=== PATIENT | male | born 1940 | race Caucasian/White ===

== ENCOUNTER 2017-02-06 11:57 | Inpatient (IN) | payer MEDICARE ==
[~2017-02-06] VITALS: Ht 182.9 cm; Wt 56.7 kg
[2017-02-06] VITALS: BP 149/74
--- NOTE | 2017-02-06 11:59 | NUR ---
BBRA FROM NEWSPAPER STAND: DIZZINESS. DENIES FALL OR KO. 600CC BOLUS NS IN FIELD
[2017-02-06 12:22] LABS: BASOPHILS # (AUTO) 0.1 /CMM (0.0-0.2); BASOPHILS % (AUTO) 1.4 % (0.0-2.0); EOSINOPHILS # (AUTO) 0.1 /CMM (0.0-0.7); HEMATOCRIT 40 % (39-51); HEMOGLOBIN 13.3 g/dL (13.5-17.5); LYMPHOCYTES # (AUTO) 1.4 /CMM (0.8-4.8); LYMPHOCYTES % (AUTO) 14.7 % (20.0-44.0); MEAN CORPUSCULAR HEMOGLOBIN 31 PG (26.0-33.0); MEAN CORPUSCULAR HGB CONC 33 g/dl (31.0-36.0); MEAN CORPUSCULAR VOLUME 93 fL (80-96); MONOCYTES # (AUTO) 0.7 /CMM (0.1-1.30); MONOCYTES % (AUTO) 7.1 % (2.0-12.0); NEUTROPHILS # (AUTO) 7.1 /CMM (1.8-8.9); NEUTROPHILS % (AUTO) 75.8 % (43.0-81.0); PLATELET COUNT (AUTO) 204 /CMM (150-450); RDW COEFFICIENT OF VARIATION 12.2 (11.5-15.0); RED BLOOD CELL COUNT(AUTO) 4.28 MIL/uL (4.5-6.0); WHITE BLOOD COUNT (AUTO) 9.4 K/uL (4.3-11.0)
[2017-02-06] MEDS ORDERED: IV NS 0.9% 1,000 ML BAG IV ONE (12:30)
[2017-02-06 12:34] LABS: CALCIUM, SERUM 8.6 mg/dL (8.5-10.1); CARBON DIOXIDE 24 mmol/L (21-32); CHLORIDE 103 mmol/L (98-107); CREATININE 1.2 mg/dL (0.6-1.3); GLUCOSE 103 mg/dL (74-106); POTASSIUM 4.3 mmol/L (3.5-5.1); SODIUM SERUM 135 mmol/L (136-145); UREA NITROGEN, BLOOD 27 mg/dL (7-18)
[2017-02-06 12:38] LABS: INR 0.94 (0.87-1.13); PROTHROMBIN TIME 9.8 SECS (9.5-12.7)
[2017-02-06 12:40] LABS: ALANINE AMINOTRANSFERASE 10 U/L (12-78); ALBUMIN 3.2 g/dL (3.4-5.0); ALKALINE PHOSPHATASE 60 U/L (46-116); ASPARTATE AMINOTRANSFERASE 22 U/L (15-37); BILIRUBIN,DIRECT 0.1 mg/dL (0.0-0.2); BILIRUBIN,TOTAL 0.4 mg/dL (0.2-1.0); TOTAL PROTEIN, SERUM 6.4 g/dL (6.4-8.2)
[2017-02-06 12:42] LABS: TROPONIN I 0.261 ng/mL (0.00-0.056)
[2017-02-06] MEDS ORDERED: ASPIRIN 325 MG TABLET ONE (13:28)
[2017-02-06] MEDS ORDERED: ASPIRIN 325 MG TABLET PO ONE (13:30)
[2017-02-06] MEDS ORDERED: MORPHINE SULFATE INJ 2 MG/ML DISP.SYRIN IV PRN (14:30)
[2017-02-06] MEDS ORDERED: NITROGLYCERIN 0.4 MG/TAB BOTTLE SL PRN (14:30)
[2017-02-06] MEDS ORDERED: MAG HYDROX/AL HYDROX/SIMETH 30 ML UDC PO PRN (14:30)
[2017-02-06] MEDS ORDERED: ACETAMINOPHEN 325 MG TABLET PO PRN (14:30)
[2017-02-06] MEDS ORDERED: ONDANSETRON HCL/PF 4 MG/2 ML VIAL IVP PRN (14:30)
[2017-02-06] MEDS ORDERED: ENOXAPARIN SODIUM 60 MG/0.6 ML DISP.SYRIN SQ ONE ×2 (14:30→15:56)
[2017-02-06] MEDS ORDERED: Z GUARD REMEDY 2 OZ OINT TP PRN (14:30)
[2017-02-06] MEDS ORDERED: MAGNESIUM HYDROXIDE 30 ML UDC PO PRN (14:30)
[2017-02-06] MEDS ORDERED: HYDROCODONE/APAP 5/325MG 1 EACH TABLET PO PRN (14:30)
--- NOTE | 2017-02-06 14:57 | NUR ---
GAVE REPORT TO LIZZIE RN BINU DX NEAR SYNCOPE NONSTEMI ADMITTING DR JOE. TRANSFER VIA ACLS PROTOCOL
[2017-02-06 16:00] VITALS: BP 116/73
[2017-02-06] MEDS: IV NS 0.9% 1,000 ML IV PRN (17:25)
--- NOTE | 2017-02-06 18:54 | NUR ---
RN CLOSING NOTE CARRIED OUT ALL MD ORDERS, PATIENTS NEEDS ANTICIPATED. PATIENT KEPT CLEAN AND DRY. NO SIGNIFICANT EVENTS DURING MY SHIFT. WILL GIVE REPORT TO PM RN FOR TYSON.
--- NOTE | 2017-02-06 19:00 | NUR ---
RN NOTES RECEIVED PT AWAKE ON BED NO ACUTE RESP DISTRESS. AFEBRILE. AOX3 ABLE TO MAKE KNOWN NEEDS. DIOMEDE NOTED BUT ABLE TO HEAR BETTER ON RIGHT EAR. PT IS WATCHING TV. DENIES ANY PAIN OR DIZZINESS. DENIES CHEST PAIN. SR WITH INVERTED T-WAVE HR 65 ON TELE MONITOR. IV SITE ON LEFT FOREARM G 16 RUNNING WITH NS @ 75 CC/HR INTACT AND PATENT. KEPT PT CLEAN AND DRY. ENCOURAGED TO ELEVATE LEGS AND MOTIVATED TO TURNED WHILE ON BED. FOR SKIN MANAGEMENT. INSTRUCTED TO USED CALL LIGHT, CALL LIGHT PLACED WITHIN EASY REACH. BED LOCKED AND SECURED PLACED IN LOWEST POSSIBLE POSITION. WILL CONTINUE TO MONITOR
[2017-02-06 20:00] VITALS: BP 123/68
[2017-02-06] MEDS: SIMVASTATIN 20 MG TABLET PO SCH (21:37)
[2017-02-07] VITALS: BP 149/74
[2017-02-07 04:00] VITALS: BP 153/68
--- NOTE | 2017-02-07 06:02 | NUR ---
RN NOTES PATIENT ASLEEP WELL ON BED. BREATHING EVEN AND UNLABORED.NO C/O OF DIZZINESS, NO SIGNIFICANT CHANGES NOTED THROUGHOUT THE SHIFT. TELE MONITOR REMAINED SINUS RHYTHM HR 63. AFEBRILE. VS STABLE. KEPT PT CLEAN AND DRY. DUE MEDICINE TOLERATED WELL. IVF NS @ 75 CC/HR INTACT AND PATENT. ASSISTED TO THE BATHROOM. WILL ENDORSED CONTINUITY OF CARE TO AM NURSE.
[2017-02-07] MEDS: IV NS 0.9% 1,000 ML IV PRN (06:15)
[2017-02-07 06:28] LABS: BASOPHILS # (AUTO) 0.1 /CMM (0.0-0.2); EOSINOPHILS # (AUTO) 0.3 /CMM (0.0-0.7); EOSINOPHILS % (AUTO) 3.6 % (0.0-6.0); HEMATOCRIT 39 % (39-51); HEMOGLOBIN 12.6 g/dL (13.5-17.5); LYMPHOCYTES % (AUTO) 23.3 % (20.0-44.0); MEAN CORPUSCULAR HEMOGLOBIN 31 PG (26.0-33.0); MEAN CORPUSCULAR HGB CONC 33 g/dl (31.0-36.0); MEAN CORPUSCULAR VOLUME 95 fL (80-96); MONOCYTES # (AUTO) 0.7 /CMM (0.1-1.30); MONOCYTES % (AUTO) 8.4 % (2.0-12.0); NEUTROPHILS # (AUTO) 5.4 /CMM (1.8-8.9); NEUTROPHILS % (AUTO) 63.7 % (43.0-81.0); PLATELET COUNT (AUTO) 163 /CMM (150-450); RDW COEFFICIENT OF VARIATION 12.9 (11.5-15.0); RED BLOOD CELL COUNT(AUTO) 4.06 MIL/uL (4.5-6.0); WHITE BLOOD COUNT (AUTO) 8.5 K/uL (4.3-11.0)
[2017-02-07 06:50] LABS: B-TYPE NATRIURETIC PEPTIDE 2969 PG/ML (0-125); CALCIUM, SERUM 8.7 mg/dL (8.5-10.1); CARBON DIOXIDE 24 mmol/L (21-32); CHLORIDE 104 mmol/L (98-107); CREATININE 0.9 mg/dL (0.6-1.3); GLUCOSE 85 mg/dL (74-106); MAGNESIUM 1.8 mg/dL (1.8-2.4); PHOSPHORUS 2.7 mg/dL (2.5-4.9); POTASSIUM 4.4 mmol/L (3.5-5.1); SODIUM SERUM 134 mmol/L (136-145); UREA NITROGEN, BLOOD 20 mg/dL (7-18)
[2017-02-07 06:51] LABS: CHOLESTEROL 210 mg/dL (<200); HDL CHOLESTEROL 54 mg/dL (40-60); LDL 130 mg/dL (0-99); THYROID STIMULATING HORMONE 4.978 uIU/mL (0.358-3.74); TRIGLYCERIDES 71 mg/dL (30-150)
[2017-02-07 08:00] VITALS: BP 135/71
--- NOTE | 2017-02-07 08:00 | NUR ---
TD/RN AM SHIFT INITIAL NOTES RECEIVED PT AWAKE SITTING IN BED, PT A/O X 3, HARD OF HEARING, DENIES CHEST PAIN, NO ACUTE CHANGE OF CONDITION NOTED. ON ROOM AIR, SATURATING @ 96%, LUNG SOUNDS CLEAR. ON TELE WITH SINUS RHYTHM, HR 65. WITH ON GOING IV INFUSION OF NS @ 75CC/HR, IV SITE PATENT WITH NO S/S INFECTION. PT IS COMFORTABLE. SCHEDULED AM MEDS TO BE GIVEN. CL WITHIN REACHED AND SAFETY MAINTAINED. ON GOING MONITORING.
[2017-02-07] MEDS: ASPIRIN EC 81 MG TABLET.DR PO SCH (08:49)
--- NOTE | 2017-02-07 11:17 | NUR ---
TELE1/RN ROUNDS - DR. SLAUGHTER PT SEEN & EXAMINED BY DR. SLAUGHTER. NO NEW ORDERS RECEIVED AT THIS TIME. MONITORING CONTINUED.
[2017-02-07 12:00] VITALS: BP 100/54
--- NOTE | 2017-02-07 14:04 | NUR ---
TELE1/PRODUCTION PLANNING SUPERVISOR OF CARE PT ENDORSED TO NURSE SAMUEL TO CONTINUE CARE.
--- NOTE | 2017-02-07 14:10 | NUR ---
RN NOTES; REC'D REPORT FROM PAO FOR TYSON.
[2017-02-07 16:00] VITALS: BP 105/55
--- NOTE | 2017-02-07 18:40 | NUR ---
RN CLOSING NOTES: NO ACUTE CHANGES NOTED W/IN SHIFT. PT TOLERATED ROOM AIR, NO SOB. ON TELE STILL WITH SINUS RHYTHM. L HAND G20 WITH ON GOING IV INFUSION OF NS @ 75CC/HR, IV SITE KEPT PATENT AND INTACT WITH NO S/S INFECTION OR INFILTRATION. KEPT WELL RESTED. NEEDS ATTENDED. CALL LIGHT PLACED WITHIN REACHED. BED KEPT LOW & IN LOCKED POS. WILL ENDORSE TO PM RN FOR TYSON.
--- NOTE | 2017-02-07 19:45 | NUR ---
RN INITIAL NOTE RECEIVED PT IN NO ACUTE DISTRESS IN BED. PT IS A/O X 3 AND ABLE TO MAKE NEEDS KNOWN. PT IS ON RA AND TOLERATING WELL WITH O2 SAT @ 98%. PT IS ON TELE MONITORING WITH SR ON THE MONITOR. PT NOT C/O ANY SOB, DIFFICULTY BREATHING OR PAIN AT THIS TIME. PT HAS LFA 18G THAT IS CLEAN DRY INTACT AND PATENT WITH SALINE LOCK. BED IN LOW LOCK POSITION WITH RIALS UP X 2. CALL LIGHT WITHIN REACH AND ALL SAFETY MEASURES ENSURED AND CARRIED OUT. WILL CONTINUE TO MONITOR PT.
[2017-02-07 20:00] VITALS: BP 120/63
[2017-02-07] MEDS: SIMVASTATIN 20 MG TABLET PO SCH (22:58)
[2017-02-07] MEDS: ZOLPIDEM TARTRATE 5 MG TABLET PO PRN (23:01)
[2017-02-08] VITALS: BP 139/75
[2017-02-08] MEDS ORDERED: ENOXAPARIN SODIUM 40 MG/0.4 ML DISP.SYRIN SQ SCH
[2017-02-08] MEDS ORDERED: ENOXAPARIN SODIUM 60 MG/0.6 ML DISP.SYRIN SQ SCH
--- NOTE | 2017-02-08 00:11 | NUR ---
RN NOTE GAVE LOVENOX 60MG @ 0000. WILL PUT NEW ORDER LOVENOX 40MG NOT GIVEN. CHARGE NURSE NOTIFIED.
[2017-02-08 04:00] VITALS: BP 113/54
--- NOTE | 2017-02-08 06:53 | NUR ---
RN CLOSING NOTE PT REMAINS IN NO ACUTE DISTRESS IN BED. PT DID NOT HAVE ANY SIGNIFICANT CHANGE IN CONDITION DURING SHIFT. ALL NEEDS MET, ALL ORDERS CARRIED OUT. WILL ENDORSE CARE TO AM RN FOR CONTINUITY OF CARE.
--- NOTE | 2017-02-08 07:00 | NUR ---
RN NOTE RECEIVED PT ON BED, A/O X 3, PT IS [place] , ABLE TO HEAR FROM L EAR, AND ABLE TO MAKE NEEDS KNOWN. RESPIRATION EVEN AND UNLABORED, NO SOB NOTED, ON TELE SR , HR IN 60'S , L FA IV SITE CDI, BED LOCKED AND IN LOWEST POSITION , CALL LIGHT WITHIN EASY REACH AND ALL SAFETY MEASURES ENSURED . WILL CONTINUE TO MONITOR PT CLOSELY
[2017-02-08 07:44] LABS: BASOPHILS % (AUTO) 0.3 % (0.0-2.0); EOSINOPHILS # (AUTO) 0.3 /CMM (0.0-0.7); EOSINOPHILS % (AUTO) 3.5 % (0.0-6.0); HEMATOCRIT 40 % (39-51); HEMOGLOBIN 13.2 g/dL (13.5-17.5); LYMPHOCYTES # (AUTO) 1.9 /CMM (0.8-4.8); LYMPHOCYTES % (AUTO) 19.9 % (20.0-44.0); MEAN CORPUSCULAR HEMOGLOBIN 32 PG (26.0-33.0); MEAN CORPUSCULAR HGB CONC 33 g/dl (31.0-36.0); MEAN CORPUSCULAR VOLUME 95 fL (80-96); MONOCYTES # (AUTO) 0.8 /CMM (0.1-1.30); MONOCYTES % (AUTO) 8.2 % (2.0-12.0); NEUTROPHILS # (AUTO) 6.5 /CMM (1.8-8.9); NEUTROPHILS % (AUTO) 68.1 % (43.0-81.0); PLATELET COUNT (AUTO) 164 /CMM (150-450); RDW COEFFICIENT OF VARIATION 13.1 (11.5-15.0); RED BLOOD CELL COUNT(AUTO) 4.19 MIL/uL (4.5-6.0); WHITE BLOOD COUNT (AUTO) 9.6 K/uL (4.3-11.0)
[2017-02-08 08:00] VITALS: BP 117/55
[2017-02-08] MEDS: ASPIRIN EC 81 MG TABLET.DR PO SCH (08:10)
[2017-02-08 08:16] LABS: CARBON DIOXIDE 24 mmol/L (21-32); CHLORIDE 105 mmol/L (98-107); CREATININE 0.9 mg/dL (0.6-1.3); GLUCOSE 81 mg/dL (74-106); MAGNESIUM 1.8 mg/dL (1.8-2.4); PHOSPHORUS 3.1 mg/dL (2.5-4.9); POTASSIUM 4.1 mmol/L (3.5-5.1); SODIUM SERUM 138 mmol/L (136-145); UREA NITROGEN, BLOOD 15 mg/dL (7-18)
[2017-02-08 12:00] VITALS: BP 116/60
--- NOTE | 2017-02-08 12:00 | NUR ---
RN NOTES PT STABLE TAL ANY DISTRESS , CONTINUE TO MONITOR .
[2017-02-08 16:00] VITALS: BP 117/69
--- NOTE | 2017-02-08 18:17 | NUR ---
RN NOTES RESPIRATION EVEN AND UNLABORED, PT WATCHING TV , TAL ANY CHEST PAIN. LEFT HAND IV SITE CDI, SR UP x3, CALL LIGHT WITHIN EASY REACH, NO SIGNIFICANT CHANGES NOTED ON THIS SHIFT , WILL ENDORSE TO BERENICE SHIFT NURSE FOR TYSON
--- NOTE | 2017-02-08 19:30 | NUR ---
RN/TELE NOTES: RECEIVED PT IN BED A/O X 3 VERBALLY RESPONSIVE. NOT IN ANY RESPIRATORY DISTRESS. RA SAT. 96 %. ABLE TO MAKE NEEDS KNOWN. PT IS ON TELE MONITORING WITH SR @ 67. PT HAS LFA HL PATENT AND INTACT W/NO S/S OF INFECTION/INFILTRATION NOTED. BED IN LOW LOCK POSITION WITH RAILS UP X 2. CALL LIGHT WITHIN REACH AND ALL SAFETY MEASURES ENSURED AND CARRIED OUT. WILL CONTINUE TO MONITOR . CALL LIGHT W/ REACH.
[2017-02-08 20:00] VITALS: BP 105/59
[2017-02-08] MEDS: ENOXAPARIN SODIUM 40 MG/0.4 ML DISP.SYRIN SQ SCH (21:04)
[2017-02-08] MEDS: SIMVASTATIN 20 MG TABLET PO SCH (21:04)
[2017-02-08] MEDS: ZOLPIDEM TARTRATE 5 MG TABLET PO PRN (21:06)
[2017-02-09] VITALS: BP_SYST 105; BP_SYST 108; BP_DIAS 55; BP_DIAS 59
[2017-02-09 04:00] VITALS: BP 101/52
--- NOTE | 2017-02-09 07:05 | NUR ---
RN/TELE NOTES: PT. RESTING IN BED COMFORTABLE. NOT IN ANY DISTRESS. REPORT GIVEN TO NEXT SHIFT NURSE TO CONTINUE PLAN OF CARE.
--- NOTE | 2017-02-09 07:15 | NUR ---
RN INITIAL NOTES: RECEIVED PT ON BED, PT IS NOT IN ANY DISTRESS AT THIS TIME. PT A&OX3, HARD OF HEARING ON LEFT SIDE, DENIES ANY CHEST PAIN. ON TELEMONITOR, SR. HAS L HAND G20, SL, FLUSHING WELL, NO S/SX OF INFECTION/INFILTRATION NOTED. PROVIDED COMFORT & SAFETY MEASURES. CALL LIGHT PLACED W/IN REACH. BED KEPT LOW & IN LOCKED POS. RN WILL CONTINUE TO MONITOR PT AND ADDRESS NEEDS.
[2017-02-09 08:00] VITALS: BP_SYST 110; BP_SYST 117; BP_DIAS 55; BP_DIAS 64
[2017-02-09] MEDS: ASPIRIN EC 81 MG TABLET.DR PO SCH (08:24)
[2017-02-09 12:00] VITALS: BP 104/54
--- NOTE | 2017-02-09 14:31 | NUR ---
02/09/[address] RAGLAND(CARDIO) PT IS SCHEDULE FOR HEART CATH AT [facility] AT 1630 ON 02/11/17, CONFRIMED WITH JAIME MORALES AT [facility]. ARANGED TRANSPORTATION VIA [facility] PROFESS[facility] AT 1345 TRIP#:[id number]. Addendum: 02/09/17 at 1432 by MARI DONATO [facility] Amended: Links added.
[2017-02-09 16:00] VITALS: BP 113/54
--- NOTE | 2017-02-09 18:43 | NUR ---
RN CLOSING NOTES: NO CHANGES NOTED W/IN SHIFT. PT TOLERATED ROOM AIR, NO SOB. ON TELE STILL WITH SINUS RHYTHM. L HAND G20, IV SITE KEPT PATENT AND INTACT WITH NO S/S INFECTION OR INFILTRATION. KEPT WELL RESTED. NEEDS ATTENDED. CALL LIGHT PLACED WITHIN REACHED. BED KEPT LOW & IN LOCKED POS.
--- NOTE | 2017-02-09 19:30 | NUR ---
RN/TELE NOTES: RECEIVED PT IN BED A/O X 3 VERBALLY RESPONSIVE. NOT IN ANY RESPIRATORY DISTRESS. RA SAT. 97 %. PT. IS [place]. PREFERS TO TALK TO HIS RIGHT SIDE. ABLE TO MAKE NEEDS KNOWN. PT IS ON TELE MONITORING WITH SR w/BBB @ 67. PT HAS LFA HL PATENT AND INTACT W/NO S/S OF INFECTION/INFILTRATION NOTED. BED IN LOW LOCK POSITION WITH RAILS UP X 2. CALL LIGHT WITHIN REACH AND ALL SAFETY MEASURES ENSURED AND CARRIED OUT. WILL CONTINUE TO MONITOR .
[2017-02-09 20:00] VITALS: BP 120/73
[2017-02-09] MEDS: ZOLPIDEM TARTRATE 5 MG TABLET PO PRN (21:03)
[2017-02-09] MEDS: ENOXAPARIN SODIUM 40 MG/0.4 ML DISP.SYRIN SQ SCH (21:04)
[2017-02-09] MEDS: SIMVASTATIN 20 MG TABLET PO SCH (21:04)
[2017-02-10] VITALS (7 sets, daily range): BP systolic 92–127; BP diastolic 38–69
--- NOTE | 2017-02-10 07:10 | NUR ---
RN/TELE NOTES: PT. RESTING IN BED COMFORTABLE. NOT IN ANY DISTRESS. REPORT GIVEN TO NEXT SHIFT NURSE TO CONTINUE PLAN OF CARE.
--- NOTE | 2017-02-10 07:38 | NUR ---
RN/TELE NOTES: RECEIVED PT RESTING IN BED A/O X 3, [place]. PATIENT IN NO APPARENT DISTRESS. NO SOB ON ROOM AIR, SAT ABOVE 95%. PATIENT ABLE TO COMMUNICATE AND MAKE NEEDS KNOWN. DENIES PAIN OR DISCOMFORT AT THIS TIME. ON TELE MONITORING WITH SR w/BBB IN 60S. IV TO LEFT HAND 20G PATENT AND INTACT. SAFETY MEASURES RENDERED BED IN LOW LOCK POSITION WITH RAILS UP X 2. CALL LIGHT WITHIN REACH. WILL CONTINUE TO MONITOR .
[2017-02-10] MEDS: ASPIRIN EC 81 MG TABLET.DR PO SCH (09:31)
--- NOTE | 2017-02-10 14:09 | NUR ---
TELE/RN NOTES PER MD ORDER, TO ASSIST PATIENT WITH AMBULATION. PATIENT STEADY DURING AMBULATION WITH NO GAIT PROBLEMS NOTED. WILL CONTINUE TO MONITOR
--- NOTE | 2017-02-10 18:24 | NUR ---
TELE NOTES PATIENT RESTING IN BED COMFORTABLY, STABLE WITH NO SIGNIFICANT CHANGES. PATIENT DENIES CHEST PAIN OR DISCOMFORT THROUGHOUT THE SHIFT. PATIENT KEPT CLEAN AND DRY. SAFETY MEASURES RENDERED. ALL DUE MEDICATIONS GIVEN ALL NEEDS MET AND ATTENDED. PATIENT HARD OF HEARING HOWEVER ABLE TO COMMUNICATE MAKE NEEDS KNOWN. PLAN OF CARE DISCUSSED AND AGREED. WILL ENDORSE CARE TO NIGHT SIFT .
--- NOTE | 2017-02-10 19:50 | NUR ---
LATH HAND NOTE: PATIENT RESTING IN BED, NO ACUTE DISTRESS NOTED. BREATHING EVEN AND UNLABORED, NO SOB NOTED. IV TO LEFT HAND IN PLACE. TELE READING 67 WITH INVERTED T-WAVE. INFORMED PATIENT THAT HE WILL BE NPO AFTER MIDNIGHT FOR PROCEDURE TOMORROW AT [facility]. BED LOCKED AND IN LOWEST POSITION, CALL LIGHT IN REACH, WILL CONTINUE TO MONITOR.
[2017-02-10] MEDS: ENOXAPARIN SODIUM 40 MG/0.4 ML DISP.SYRIN SQ SCH (21:00)
[2017-02-10] MEDS: ZOLPIDEM TARTRATE 5 MG TABLET PO PRN (21:26)
[2017-02-10] MEDS: SIMVASTATIN 20 MG TABLET PO SCH (21:26)
--- NOTE | 2017-02-10 21:30 | NUR ---
MEAT CUTTING BLOCK REPAIRER NOTE: PATIENT REQUEST FOR SLEEPING MEDICATION, AMBIEN 5MG ORAL GIVEN PER MD ORDER. WILL CONTINUE TO MONITOR.
[2017-02-11] VITALS (8 sets, daily range): BP systolic 101–124; BP diastolic 30–64
[2017-02-11 06:24] LABS: BASOPHILS % (AUTO) 0.4 % (0.0-2.0); EOSINOPHILS # (AUTO) 0.4 /CMM (0.0-0.7); EOSINOPHILS % (AUTO) 3.9 % (0.0-6.0); HEMATOCRIT 44 % (39-51); HEMOGLOBIN 14.3 g/dL (13.5-17.5); LYMPHOCYTES % (AUTO) 21.8 % (20.0-44.0); MEAN CORPUSCULAR HEMOGLOBIN 30 PG (26.0-33.0); MEAN CORPUSCULAR HGB CONC 32 g/dl (31.0-36.0); MEAN CORPUSCULAR VOLUME 94 fL (80-96); MONOCYTES # (AUTO) 0.9 /CMM (0.1-1.30); MONOCYTES % (AUTO) 9.3 % (2.0-12.0); NEUTROPHILS % (AUTO) 64.6 % (43.0-81.0); PLATELET COUNT (AUTO) 167 /CMM (150-450); WHITE BLOOD COUNT (AUTO) 9.3 K/uL (4.3-11.0)
--- NOTE | 2017-02-11 06:30 | NUR ---
SCRAP KETTLE TENDER NOTE: PATIENT RESTING IN BED, NO ACUTE DISTRESS NOTED. BREATHING EVEN AND UNLABORED, NO SOB NOTED. IV TO LEFT HAND IN PLACE. TELE READING 60 WITH INVERTED T-WAVE. PATIENT NPO SINCE MIDNIGHT FOR PROCEDURE AT [facility]. BED LOCKED AND IN LOWEST POSITION, CALL LIGHT IN REACH, WILL ENDORSE TO DAY NURSE TO CONTINUE WITH PLAN OF CARE.
[2017-02-11 06:40] LABS: INR 0.9 (0.87-1.13); PROTHROMBIN TIME 9.4 SECS (9.5-12.7)
[2017-02-11 06:52] LABS: CALCIUM, SERUM 9.4 mg/dL (8.5-10.1); CARBON DIOXIDE 28 mmol/L (21-32); CHLORIDE 100 mmol/L (98-107); CREATININE 1.1 mg/dL (0.6-1.3); GLUCOSE 92 mg/dL (74-106); MAGNESIUM 1.9 mg/dL (1.8-2.4); PHOSPHORUS 3.9 mg/dL (2.5-4.9); POTASSIUM 4.5 mmol/L (3.5-5.1); SODIUM SERUM 135 mmol/L (136-145); UREA NITROGEN, BLOOD 24 mg/dL (7-18)
--- NOTE | 2017-02-11 07:10 | NUR ---
RN NOTES PT IS SLEEPING IN BED, NO SIGNS OF DISTRESS NOTED. PT ON RA, RESPIRATIONS ARE EVEN AND UNLABORED. IV ON L HAND INTACT AND SL. SAFETY MEASURES ARE IN PLACE, CALL LIGHT IS IN REACH. WILL CONTINUE TO MONITOR.
[2017-02-11] MEDS: ASPIRIN EC 81 MG TABLET.DR PO SCH (08:47)
--- NOTE | 2017-02-11 12:30 | NUR ---
RN NOTES PT WAS TRANSFERRED TO [facility] FOR CARDIAC CATHETERIZATION PROCEDURE. PT LEFT IN STABLE CONDITION ACCOMPANIED BY AMBULANCE PRACTICE BUSINESS ASST. REPORT GIVEN TO RECEIVING NURSE.
--- NOTE | 2017-02-11 18:27 | NUR ---
RN NOTES PT AT [facility] IN RECOVERY POST HEART CATH. UPDATES FROM THE RN JAIME STATES PT IS STABLE, ON RA, VITAL SIGNS ARE STABLE. PT HAS EATEN HIS DINNER BUT HAS NOT VOIDED YET. DRESSING ON R GROIN IN PLACE. PT IS SCHEDULED TO BE PICKED UP FROM [facility] AND TRANSFERRED BACK HERE AT 1900. WILL ENDORSE TO TURBINE TECHNICIAN RN.
--- NOTE | 2017-02-11 21:00 | NUR ---
RN NOTES PATIENT RETURNED TO UNIT VIA GURNEY, ACCOMPANIED BY TRANSPORT NURSE AND 2EMTs. PATIENT IS A/O X4, ABLE TO VERBALIZE NEEDS, DENIES ANY ACUTE DISTRESS OR PAIN AT THIS TIME. BREATHING EVEN AND NONLABORED, TOLERATING ROOM AIR WELL, FREE FROM ANY S/S OF RESPIRATORY DISTRESS. PLACED ON TELEMETRY MONITORING, REVEALING NSR, HR = 66. PATIENT DENIES ANY PAIN OR CHEST DISCOMFORT. RIGHT GROIN DRESSING INTACT, NOTED WITH SCANT AMOUNT OF DRY BLOOD. PATIENT IS AMBULATORY, STEADY WITHOUT ANY ASSISTANCE. PATIENT URINATED IN BATHROOM. PLAN OF CARE DISCUSSED WITH THE PATIENT CALL LIGHT LEFT WITHIN EASY REACH. WILL CONTINUE TO CLOSELY MONITOR THE PATIENT
[2017-02-11] MEDS: SIMVASTATIN 20 MG TABLET PO SCH (21:11)
[2017-02-11] MEDS: ENOXAPARIN SODIUM 40 MG/0.4 ML DISP.SYRIN SQ SCH (21:15)
[2017-02-12] VITALS: BP 131/67
[2017-02-12 04:00] VITALS: BP_SYST 106; BP_SYST 141; BP_DIAS 65; BP_DIAS 77
--- NOTE | 2017-02-12 06:28 | NUR ---
RN CLOSING NOTES PATIENT RESTING COMFORTABLY IN BED, NO ACUTE CHANGES THROUGHOUT SHIFT, PATIENT KEPT COMFORTABLE. WILL ENDORSE THE PATIENT TO THE AM SHIFT NURSE FOR CONTINUITY OF CARE
--- NOTE | 2017-02-12 07:15 | NUR ---
RN NOTES RECEIVED PT ON BED, A/Ox4, [place], RESPIRATION EVEN AND UNLABORED, ON RA , TAL ANY DISTRESS , ON TELE SR IN 70'S WITH INVERTED T WAVES , L HAND IV SITE G 20 CDI, SR UP x3, CALL LIGHT WITHIN EASY REACH, BED LOCKED AND IN LOWEST POSITION , WILL CONTINUE TO MONITOR PT CLSOELY .
[2017-02-12 08:00] VITALS: BP_SYST 127; BP_SYST 130; BP_DIAS 77; BP_DIAS 82
[2017-02-12] MEDS: ASPIRIN EC 81 MG TABLET.DR PO SCH (08:27)
[2017-02-12 09:04] LABS: CALCIUM, SERUM 9.3 mg/dL (8.5-10.1); CARBON DIOXIDE 29 mmol/L (21-32); CHLORIDE 100 mmol/L (98-107); GLUCOSE 148 mg/dL (74-106); POTASSIUM 4.2 mmol/L (3.5-5.1); SODIUM SERUM 137 mmol/L (136-145); UREA NITROGEN, BLOOD 23 mg/dL (7-18)
[2017-02-12 12:00] VITALS: BP 115/67
[2017-02-12 13:33] LABS: BASOPHILS % (AUTO) 0.1 % (0.0-2.0); EOSINOPHILS # (AUTO) 0.2 /CMM (0.0-0.7); EOSINOPHILS % (AUTO) 2.9 % (0.0-6.0); HEMATOCRIT 43 % (39-51); HEMOGLOBIN 14.1 g/dL (13.5-17.5); LYMPHOCYTES # (AUTO) 1.4 /CMM (0.8-4.8); LYMPHOCYTES % (AUTO) 16.1 % (20.0-44.0); MEAN CORPUSCULAR HEMOGLOBIN 31 PG (26.0-33.0); MEAN CORPUSCULAR HGB CONC 33 g/dl (31.0-36.0); MEAN CORPUSCULAR VOLUME 94 fL (80-96); MONOCYTES # (AUTO) 0.7 /CMM (0.1-1.30); MONOCYTES % (AUTO) 7.9 % (2.0-12.0); NEUTROPHILS # (AUTO) 6.2 /CMM (1.8-8.9); PLATELET COUNT (AUTO) 171 /CMM (150-450); RDW COEFFICIENT OF VARIATION 12.1 (11.5-15.0); RED BLOOD CELL COUNT(AUTO) 4.55 MIL/uL (4.5-6.0); WHITE BLOOD COUNT (AUTO) 8.6 K/uL (4.3-11.0)
--- NOTE | 2017-02-12 15:00 | NUR ---
[facility] , PT STABLE, CONTINUE TO MONITOR .
[2017-02-12] MEDS ORDERED: ASPI-991 PO (15:01)
[2017-02-12] MEDS ORDERED: SIMV20TA6 PO (15:01)
[2017-02-12 16:00] VITALS: BP 115/63
--- NOTE | 2017-02-12 18:20 | NUR ---
RN NOTES EMT PERSONAL ON THE FLOOR, REPORT GIVEN , DISCHARGE SKIN PHOTO TAKE , H/L DISCONTINUED, VSS STABLE , PT LEFT THE FLOOR IN STABLE CONDITION ACCOMPANIED BY EMT .
== END 2017-02-12 18:24 | DRG 281 ==
LOC: ER 12:00 → TELE-TD 15:10 → TELE1 02-07 10:29
PROC: 4A023N8 Measurement of Cardiac Sampling and Pressure, Bilateral, Percutaneous Approach (ICD-10-PCS; principal; 2017-02-11)
PROC: B211YZZ Fluoroscopy of Multiple Coronary Arteries using Other Contrast (ICD-10-PCS; 2017-02-11)
DX: I21.A1 Myocardial infarction type 2 (principal); E44.1 Mild protein-calorie malnutrition; E88.09 Other disorders of plasma-protein metabolism, not elsewhere classified; E87.1 Hypo-osmolality and hyponatremia; Z68.1 Body mass index [BMI] 19.9 or less, adult; E86.0 Dehydration; E78.5 Hyperlipidemia, unspecified; F17.210 Nicotine dependence, cigarettes, uncomplicated; I25.10 Atherosclerotic heart disease of native coronary artery without angina pectoris; R55 Syncope and collapse; I35.0 Nonrheumatic aortic (valve) stenosis
CPT/HCPCS: 36415; 70450-TC; 71010-TC; 80048-TC; 80061-TC; 80076-TC; 83605-TC; 83735-TC; 83880; 84100-TC; 84439-TC; 84443-TC; 84484-TC; 85025-TC; 85610-TC; 85730-TC; 87081-TC; 93307-TC; 93880-TC; A4606; J1650; J7030; Z7610